=== PATIENT | male | born 1965 | race Two or more races ===

== ENCOUNTER 2022-09-10 06:30 | Emergency (ER) | payer OTHER ==
[~2022-09-10] VITALS: Ht 172.7 cm; Wt 111.1 kg
[2022-09-10] MEDS ORDERED: VERELAN PM100 MG (06:42)
[2022-09-10] MEDS ORDERED: ZESTRIL40 M1 (06:42)
[2022-09-10] MEDS ORDERED: HYDROCHLOROTHIA50 MG (06:42)
[2022-09-10] MEDS ORDERED: LIPITOR80 MG (06:42)
== END 2022-09-10 08:59 | disposition home or self-care (01) ==
LOC: ER 06:30
DX: R51.9 Headache, unspecified (principal); E78.00 Pure hypercholesterolemia, unspecified; I10 Essential (primary) hypertension